=== PATIENT | male | born 1965 | race Caucasian/White ===

== ENCOUNTER 2018-12-02 11:48 | Emergency (ER) | payer OTHER ==
[~2018-12-02] VITALS: Ht 167.6 cm; Wt 98.9 kg
[~2018-12-02 11:48] MED LIST changes: -TUSSIONEX PENN115 ML PO
[2018-12-02] MEDS ORDERED: TUSSIONEX PENN115 ML PO (15:38)
== END 2018-12-02 15:47 | disposition home or self-care (01) ==
LOC: ER 11:48
DX: J20.9 Acute bronchitis, unspecified (principal)

== ENCOUNTER → 2018-12-02 | Emergency (ER) | payer OTHER ==
[~2018-12-02] VITALS: Ht 167.6 cm; Wt 98.9 kg
[~2018-12-02] MED LIST: NEXIUM20 MG/PACK; PREVACID30 MG PO; PROTONIX20 MG; PROTONIX40 MG; TUSSIONEX PENN115 ML PO; XANAX1 MG; XANAX2 MG PO
== END | disposition left against medical advice (07) ==
LOC: ER 00:22
DX: Z53.20 Procedure and treatment not carried out because of patient's decision for unspecified reasons (principal)

== ENCOUNTER 2020-05-13 04:49 | Emergency (ER) | payer OTHER ==
[~2020-05-13] VITALS: Ht 167.6 cm; Wt 94.3 kg
[~2020-05-13 04:49] MED LIST changes: +TUSSIONEX PENN115 ML PO
[2020-05-13] MEDS ORDERED: XANAX XR0.5 MG (04:55)
[2020-05-13] MEDS ORDERED: COZAAR25 MG (05:23)
[2020-05-13] MEDS ORDERED: VISTARIL50 MG PO (08:12)
[2020-05-13] MEDS ORDERED: ASPIR 8181 MG PO (08:12)
[2020-05-13] MEDS ORDERED: XANAX XR0.5 MG PO (08:14)
== END 2020-05-13 08:21 | disposition home or self-care (01) ==
LOC: ER 04:49
DX: E03.8 Other specified hypothyroidism (principal); R07.89 Other chest pain; F06.4 Anxiety disorder due to known physiological condition

== ENCOUNTER 2022-07-26 08:20 | Emergency (ER) | payer OTHER ==
[~2022-07-26] VITALS: Ht 167.6 cm; Wt 98.9 kg
[~2022-07-26 08:20] MED LIST changes: +ASPIR 8181 MG PO; +COZAAR25 MG; +VISTARIL50 MG PO; +XANAX XR0.5 MG; +XANAX XR0.5 MG PO
[2022-07-26] MEDS ORDERED: IPRAT-ALBUT 0.5-3 ML IH (16:15)
[2022-07-26] MEDS ORDERED: LEVALBUTER1.25 MG/0. IH (16:15)
[2022-07-26] MEDS ORDERED: MUCINEX DM ER1 EAC1 PO (16:15)
[2022-07-26] MEDS ORDERED: LEVOFLOXACIN750 MG PO (16:15)
[2022-07-26] MEDS ORDERED: BENZONATATE200 M1 PO (16:15)
[2022-07-26] MEDS ORDERED: MEDROLPACK PO (16:15)
== END 2022-07-26 16:19 ==
LOC: ER 08:20
DX: J20.9 Acute bronchitis, unspecified (principal); Z20.822 Contact with and (suspected) exposure to COVID-19

== ENCOUNTER → 2024-08-01 | Emergency (ER) | payer OTHER ==
[~2024-08-01] VITALS: Ht 167.6 cm; Wt 90.7 kg
[~2024-08-01] MED LIST changes: +BENZONATATE200 M1 PO; +IPRAT-ALBUT 0.5-3 ML IH; +LEVALBUTER1.25 MG/0. IH; +LEVOFLOXACIN750 MG PO; +MEDROLPACK PO; +MUCINEX DM ER1 EAC1 PO; +SYNTHROID50 MCG
== END | disposition left against medical advice (07) ==
LOC: ER 22:51
DX: Z53.21 Procedure and treatment not carried out due to patient leaving prior to being seen by health care provider (principal)